=== PATIENT | female | born 1990 | race Caucasian/White ===

== ENCOUNTER 2016-11-15 16:44 | Emergency (ER) | payer BC ==
[2016-11-15 16:59] VITALS: BP 111/63
--- NOTE | 2016-11-15 17:21 | UC ---
UC General HPI - HPI Summary HPI Summary: complaint of rash on right ankle started 2 weeks ago after sleeping on her sisters couch and had bites on her knees teusday was sitting on sisters floor and had some bites on her right ankle at first they looked like mosquito bites and then her leg was swollen this morning the bites turned black and blue today they are slightly itchy took ibuprofen, benadryl and hydrocortisone crema on rash with relief - History of Current Complaint Chief Complaint: UCSkin Stated Complaint: RT ANKLE SKIN COMPLAINT Time Seen by Provider: 11/15/16 17:14 Hx Obtained From: Patient - Allergy/Home Medications Allergies/Adverse Reactions: Allergies Allergy/AdvReac Type Severity Reaction Status Date / Time No Known Allergies Allergy Verified 11/15/16 16:49 Home Medications: Home Medications Control Med 1 tab DAILY 11/15/16 [History Confirmed 11/15/16] PMH/Surg Hx/FS Hx/Imm Hx Previously Healthy: Yes - Surgical History Surgical History: Yes Surgery Procedure, Year, and Place: [facility] - Family History Known Family History: Negative: Cardiac Disease, Hypertension, Diabetes - Social History Occupation: Employed Full-time Lives: With Family Alcohol Use: Rare Substance Use Type: None Smoking Status (MU): Light Every Day Tobacco Smoker Type: Cigarettes Amount Used/How Often: 05/22 ppd Cessation Counseling: Patient Advised to Stop - Immunization History Most Recent Influenza Vaccination: NONE 2015 Most Recent Tetanus Shot: UTD Most Recent Pneumonia Vaccination: N/A Review of Systems Constitutional: Negative Skin: Rash Eyes: Negative ENT: Negative Respiratory: Negative Cardiovascular: Negative Gastrointestinal: Negative Genitourinary: Negative Motor: Negative Neurovascular: Negative Musculoskeletal: Negative Neurological: Negative Psychological: Negative All Other Systems Reviewed And Are Negative: Yes Physical Exam Triage Information Reviewed: Yes Appearance: No Pain Distress, Well-Nourished Vital Signs: Initial Vital Signs Temp 98.2 F 11/15/16 16:50 Pulse 87 11/15/16 16:50 Resp 16 11/15/16 16:50 BP 111/63 11/15/16 16:50 Pulse Ox 99 11/15/16 16:50 Vital Signs Reviewed: Yes Eyes: Positive: Conjunctiva Clear Neck: Positive: No Lymphadenopathy Respiratory: Positive: Lungs clear, Normal breath sounds, No respiratory distress Cardiovascular: Positive: RRR, No Murmur, Pulses Normal Musculoskeletal: Positive: No Edema Neurological: Positive: Alert Psychological Exam: Normal Skin: Positive: Other - right ankle several insect bites with small area of ecchymosis around bites, no warmth or erythema Course/Dx - Course Course Of Treatment: exam completed. no s/s of infection- will take bendryl for itching as needed. followup with PCP - Differential Dx - Multi-Symptom Provider Diagnoses: rash-insect bites Discharge - Discharge Plan Condition: Stable Disposition: HOME Patient Education Materials: Acute Rash (ED) Referrals: Chris Sims MD [Primary Care Provider] - Additional Instructions: continue to take benadryl for itching as needed Increase fluids and rest Take acetaminophen or ibuprofen for fever or pain Please review your discharge instructions. If your symptoms do not improve please call your primary care provider or return to urgent care.
== END 2016-11-15 17:43 | disposition home or self-care (01) ==
LOC: UCCORT 16:44
DX: S90.561A Insect bite (nonvenomous), right ankle, initial encounter (principal); R21 Rash and other nonspecific skin eruption; W57.XXXA Bitten or stung by nonvenomous insect and other nonvenomous arthropods, initial encounter; F17.210 Nicotine dependence, cigarettes, uncomplicated
CPT/HCPCS: 99211; G0463

== ENCOUNTER 2016-12-15 12:21 | Emergency (ER) | payer BC ==
[2016-12-15 14:26] VITALS: BP 97/55
--- NOTE | 2016-12-15 14:40 | UC ---
Skin Complaint HPI - HPI Summary HPI Summary: Pt presents with c/o generalized hives that began yesterday. Pt unsure of what she came in to contact with but did take OTC benadryl and reports improvement in pruritis and hives. - History of Current Complaint Chief Complaint: UCRash Time Seen by Provider: 12/15/16 14:32 Stated Complaint: SKIN COMPLAINT Hx Obtained From: Patient Hx Last Menstrual Period: 11/18/16 ?: No Onset/Duration: Sudden Onset, Lasting Hours, Still Present - improved since onset Skin Exposure Onset/Duration: Days Ago - 1 day aog Timing: Constant Onset Severity: Moderate Current Severity: Mild Location: Diffuse, Generalized Character: Pruritus Aggravating: Nothing Alleviating: Antihistamines Associated Signs & Symptoms: Positive: Rash Related History: Other: - unknown - Allergy/Home Medications Allergies/Adverse Reactions: Allergies Allergy/AdvReac Type Severity Reaction Status Date / Time No Known Allergies Allergy Verified 12/15/16 14:21 Home Medications: Home Medications Desogestrel & Ethinyl Estradio [Juleber 0.15-30 mg-Mcg] 1 tab PO DAILY 12/15/16 [History Confirmed 12/15/16] diPHENhydraMINE PO* [Benadryl PO 25 MG TAB*] 25 mg PO TID PRN 12/15/16 [History Confirmed 12/15/16] Review of Systems Constitutional: Negative Skin: Other - hives, diffuse Eyes: Negative ENT: Negative Respiratory: Negative Cardiovascular: Negative Gastrointestinal: Negative Genitourinary: Negative Motor: Negative Neurovascular: Negative Musculoskeletal: Negative Neurological: Negative Psychological: Negative All Other Systems Reviewed And Are Negative: Yes PMH/Surg Hx/FS Hx/Imm Hx Previously Healthy: Yes - Surgical History Surgical History: Yes Surgery Procedure, Year, and Place: [facility] - Family History Known Family History: Negative: Cardiac Disease, Hypertension, Diabetes - Social History Occupation: Employed Full-time Lives: With Family Alcohol Use: Rare Substance Use Type: None Smoking Status (MU): Light Every Day Tobacco Smoker Type: Cigarettes Amount Used/How Often: 5-10 cigarettes daily Have You Smoked in the Last Year: Yes - Immunization History Most Recent Influenza Vaccination: NONE 2015 Most Recent Tetanus Shot: UTD Most Recent Pneumonia Vaccination: N/A Physical Exam Triage Information Reviewed: Yes Appearance: Well-Appearing Vital Signs: Initial Vital Signs Temp 98.1 F 12/15/16 14:22 Pulse 76 12/15/16 14:22 Resp 16 12/15/16 14:22 BP 97/55 12/15/16 14:22 Pulse Ox 100 12/15/16 14:22 Vital Signs Reviewed: Yes Eye Exam: Normal ENT Exam: Normal Dental Exam: Normal Neck exam: Normal Respiratory Exam: Normal Cardiovascular Exam: Normal Musculoskeletal Exam: Normal Neurological Exam: Normal Psychological Exam: Normal Skin Exam: Other - generalized hive abdomen,torso, upper legs bilateral Course/Dx - Differential Diagnoses - Skin Complaint Differential Diagnoses: Contact Dermatitis, Urticaria - Diagnoses Provider Diagnoses: urticaria Discharge - Discharge Plan Condition: Stable Disposition: HOME Prescriptions: LoraTADine TAB(NF) [Claritin 10 MG TAB(NF)] 10 mg PO DAILY #10 tab Patient Education Materials: Urticaria (ED) Referrals: Arnie Montoya MD [Medical Doctor] - Chris Sims MD [Primary Care Provider] - If Needed Additional Instructions: Please follow up with your PCP or return to clinic. We have provided a referral to an insulation worker interior surface if needed.
== END 2016-12-15 14:50 | disposition home or self-care (01) ==
LOC: UCCORT 12:21
DX: L50.9 Urticaria, unspecified (principal); F17.210 Nicotine dependence, cigarettes, uncomplicated
CPT/HCPCS: 99212; G0463

== ENCOUNTER 2017-05-04 09:04 | Emergency (ER) | payer SELFPAY ==
[2017-05-04 09:44] VITALS: BP 101/65
--- NOTE | 2017-05-04 09:52 | UC ---
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 States yesterday, noticed some redness and streaking to the vein. States area itches. " She is uncertain what bit her. It is better today and less firm. no fevers/ chills. she looked online bc of the streak and she got concerned and wanted to get checked. the streak has been marked with marker and has not spread. -denies . states UTD w/ depo - History of Current Complaint Chief Complaint: UCSkin Time Seen by Provider: 05/04/17 09:27 Stated Complaint: LEFT ARM SKIN COMPLAINT W/C Hx Last Menstrual Period: 03/10/17 - Allergy/Home Medications Allergies/Adverse Reactions: Allergies Allergy/AdvReac Type Severity Reaction Status Date / Time No Known Allergies Allergy Verified 05/04/17 09:33 Home Medications: Home Medications Medroxyprogesterone Acetate (C [Depo-Provera Contraceptiv] 150 mg IM ONCE [History Confirmed 05/04/17] Review of Systems Constitutional: Negative Skin: Rash Eyes: Negative ENT: Negative Respiratory: Negative Cardiovascular: Negative Gastrointestinal: Negative Genitourinary: Negative Motor: Negative Neurovascular: Negative Musculoskeletal: Negative Neurological: Negative Psychological: Negative Is Patient Immunocompromised?: No All Other Systems Reviewed And Are Negative: Yes PMH/Surg Hx/FS Hx/Imm Hx Previously Healthy: Yes - Surgical History Surgical History: Yes Surgery Procedure, Year, and Place: [facility] - Family History Known Family History: Negative: Cardiac Disease, Hypertension, Diabetes - Social History Alcohol Use: Rare Substance Use Type: None Smoking Status (MU): Light Every Day Tobacco Smoker Type: Cigarettes Amount Used/How Often: 6 cigarettes daily Have You Smoked in the Last Year: Yes - Immunization History Most Recent Influenza Vaccination: NONE 2016 Most Recent Tetanus Shot: UTD Most Recent Pneumonia Vaccination: N/A Physical Exam Triage Information Reviewed: Yes Appearance: Well-Appearing, No Pain Distress, Well-Nourished Vital Signs: Initial Vital Signs Temp 97.7 F 05/04/17 09:34 Pulse 81 05/04/17 09:34 Resp 20 05/04/17 09:34 BP 101/65 05/04/17 09:34 Vital Signs Reviewed: Yes Eye Exam: Normal ENT: Positive: Pharynx normal Neck exam: Normal Neck: Positive: Supple, Nontender, No Lymphadenopathy Respiratory: Positive: Lungs clear, Normal breath sounds Cardiovascular Exam: Normal Cardiovascular: Positive: RRR, No Murmur Abdomen Description: Positive: Nontender, Soft Musculoskeletal Exam: Normal Neurological Exam: Normal Psychological Exam: Normal Skin: Positive: Other - rt flexor mid forearm w/ nickel sized very mildly erythematous round slightly elevated lesion. there is a very faint "S" shaped streak leading to vein from lesion. not tender. cool to touch. no d/c. vein appears nml, not swollen. Course/Dx - Course Course Of Treatment: will treat w/ abx. adv to go to ER if sx worsen, fevers or chills. she understood me well and is agreeable w/ plan. - Differential Diagnoses - Skin Complaint Differential Diagnoses: Cellulitis, Lymphangitis - Diagnoses Provider Diagnoses: cellulitis Discharge - Discharge Plan Condition: Stable Disposition: HOME Prescriptions: Sulfamethox/Trimethoprim DS* [Bactrim DS 800/160 TAB*] 1 tab PO BID #20 tab Patient Education Materials: Cellulitis (ED) Referrals: Non Staff,Doctor [Primary Care Provider] - Additional Instructions: Follow up with your primary care office in [place] in 1-2 days. If your symptoms (rash) worsens or if you develop fevers or chills, you should go to the ER. -Make sure to take a probiotic daily while on antibiotics to help prevent a potential complication of antibiotic use called c diff. Some well known brands that can be found OTC are florastor, align and [employer]. Make sure to complete the entire prescription unless advised otherwise by your health care provider.
== END 2017-05-04 10:21 | disposition home or self-care (01) ==
LOC: UCCORT 09:04
DX: L03.113 Cellulitis of right upper limb (principal); F17.210 Nicotine dependence, cigarettes, uncomplicated
CPT/HCPCS: 99212; G0463

== ENCOUNTER 2018-01-30 16:44 | Emergency (ER) | payer BC ==
[2018-01-30 17:02] VITALS: BP 120/75
--- NOTE | 2018-01-30 18:14 | UC ---
Eye Complaint HPI - HPI Summary HPI Summary: eyes were itchy 2 weeks ago but got better. L eye itchy since yesterday and now has a green discharge. No injury, pain or vision loss. wears contacts. - History of Current Complaint Chief Complaint: UCEye Stated Complaint: EYE COMP Time Seen by Provider: 01/30/18 18:08 Hx Obtained From: Patient Hx Last Menstrual Period: 11/18/16 Onset/Duration: Gradual Onset Timing: Constant Pain Intensity: 0 Aggravating Factor(s): Nothing Alleviating Factor(s): Nothing Associated Signs And Symptoms: Positive: Drainage (Purulent). Negative: Photophobia, Vision Impairment Bilateral - Risk Factors Penetrating Injury Risk Factor: Negative Globe Rupture Risk Factors: Negative Acute Glaucoma Risk Factors: Negative Optic Artery Occlusion Risk Factors: Negative - Allergies/Home Medications Allergies/Adverse Reactions: Allergies Allergy/AdvReac Type Severity Reaction Status Date / Time No Known Allergies Allergy Verified 01/30/18 17:03 PMH/Surg Hx/FS Hx/Imm Hx Previously Healthy: Yes - Surgical History Surgical History: Yes Surgery Procedure, Year, and Place: [facility] - Family History Known Family History: Negative: Cardiac Disease, Hypertension, Diabetes - Social History Lives: With Family Alcohol Use: Rare Substance Use Type: None Smoking Status (MU): Heavy Every Day Tobacco Smoker Type: Cigarettes Amount Used/How Often: 5-10 cigarettes daily Have You Smoked in the Last Year: Yes - Immunization History Most Recent Influenza Vaccination: NONE 2015 Most Recent Tetanus Shot: UTD Most Recent Pneumonia Vaccination: N/A Vaccination Up to Date: Yes Review of Systems Constitutional: Negative Skin: Negative Eyes: Drainage, Eye Redness ENT: Negative Respiratory: Negative Cardiovascular: Negative Gastrointestinal: Negative Genitourinary: Negative Motor: Negative Neurovascular: Negative Musculoskeletal: Negative Neurological: Negative Psychological: Negative Is Patient Immunocompromised?: No All Other Systems Reviewed And Are Negative: Yes Physical Exam Triage Information Reviewed: Yes Appearance: Well-Appearing Vital Signs: Initial Vital Signs Temp 98.3 F 01/30/18 16:59 Pulse 90 01/30/18 16:59 Resp 20 01/30/18 16:59 BP 120/75 01/30/18 16:59 Pulse Ox 99 01/30/18 16:59 Vital Signs Reviewed: Yes Eyes: Positive: Other: - No periorbital edema or rash. PERRL, EOMI. Conjunctiva mild injected L, R clear. Green exudate L medial canthus. AC's clear. No FB's. No auricular adenopathy. ENT: Positive: Pharynx normal, TMs normal. Negative: Nasal congestion, Nasal drainage Neck: Positive: Supple, Nontender, No Lymphadenopathy Respiratory: Positive: Lungs clear, Normal breath sounds Cardiovascular: Positive: RRR, No Murmur Abdomen Description: Positive: Nontender, No Organomegaly, Soft Bowel Sounds: Positive: Present Musculoskeletal: Positive: ROM Intact Neurological: Positive: Alert Psychological: Positive: Age Appropriate Behavior Skin Exam: Normal Eye Complaint Course/Dx - Differential Dx/Diagnosis Differential Diagnosis/HQI/PQRI: Conjunctivitis, Foreign Body, Keratitis Provider Diagnoses: Conjunctivitis L eye Discharge - Sign-Out/Discharge Documenting (check all that apply): Patient Departure All imaging exams completed and their final reports reviewed: No Studies - Discharge Plan Condition: Stable Disposition: HOME Prescriptions: Ciprofloxacin 0.3% OPTH.TOAN* [Cipro 0.3% Opth*] 3 drop LEFT EYE Q4H 7 Days #1 btl Patient Education Materials: Conjunctivitis (ED) Referrals: Mustapha May DO [Primary Care Provider] - 7 Days Additional Instructions: no contact use until cleared - Billing Disposition and Condition Condition: STABLE Disposition: Home
== END 2018-01-30 18:20 | disposition home or self-care (01) ==
LOC: UCCORT 16:44
DX: H10.9 Unspecified conjunctivitis (principal); F17.210 Nicotine dependence, cigarettes, uncomplicated
CPT/HCPCS: 99212; G0463